=== PATIENT | male | born 1965 | race African-American/Black ===

== ENCOUNTER 2021-01-23 12:06 | Emergency (ER) | payer OTHER ==
[2021-01-23 12:13] VITALS: BP 129/83; PULSE 77; RESP 20; TEMP 98.1
[2021-01-23] MEDS ORDERED: IBUPROFEN 600 MG TAB PO STA (12:22)
--- NOTE | 2021-01-23 12:25 | ED ---
Lower Extremity Injury HPI - General Chief Complaint: Extremity Injury, Lower Stated Complaint: Knee Injury Time Seen by Provider: 01/23/21 12:14 Source: patient Mode of arrival: wheelchair Limitations: no limitations - History of Present Illness Initial Comments: 55-year-old male presents to the emergency department with a chief complaint of right knee pain. Patient reports incident occurred yesterday while he was playing basketball. He states he went for a layup and landed on his right leg causing it to twist. Patient reports night continues to have pain with knee flexion and weightbearing. Patient denies any numbness or tingling. Denies taking medication to alleviate the symptoms. Denies previous injuries to the region. - Related Data Home Medications Medication Instructions Recorded Confirmed Acetaminophen [Tylenol Arthritis] 650 mg PO Q4H PRN 01/23/21 01/23/21 Calc/Mag Supplement 1 tab PO DAILY 01/23/21 01/23/21 Chlorpheniramine Maleate 4 mg PO Q4H PRN 01/23/21 01/23/21 [Chlor-Trimeton] Ibuprofen [Motrin] 600 mg PO Q6HR PRN 01/23/21 01/23/21 Multivitamins, Thera [Multivitamin 1 tab PO DAILY 01/23/21 01/23/21 (formulary)] QUEtiapine FUMARATE [SEROquel] 300 mg PO HS 01/23/21 01/23/21 Sertraline [Zoloft] 75 mg PO DAILY@1130 01/23/21 01/23/21 Thiamine [Vitamin B-1] 100 mg PO DAILY 01/23/21 01/23/21 buPROPion HCL [Wellbutrin SR] 200 mg PO DAILY 01/23/21 01/23/21 Allergies Allergy/AdvReac Type Severity Reaction Status Date / Time No Known Allergies Allergy Verified 01/23/21 13:16 Review of Systems ROS Statement: Those systems with pertinent positive or pertinent negative responses have been documented in the HPI. ROS Other: All systems not noted in ROS Statement are negative. Past Medical History Past Medical History: No Reported History History of Any Multi-Drug Resistant Organisms: None Reported Past Surgical History: Orthopedic Surgery Additional Past Surgical History / Comment(s): lt thumb Past Psychological History: Anxiety, Depression, PTSD Smoking Status: Current every day smoker Past Alcohol Use History: Abuse, Daily, Heavy Past Drug Use History: Cocaine General Exam Limitations: no limitations General appearance: alert, in no apparent distress Head exam: Present: atraumatic, normocephalic, normal inspection Eye exam: Present: normal appearance, PERRL, EOMI Pupils: Present: normal accommodation ENT exam: Present: normal exam, normal oropharynx, mucous membranes moist, TM's normal bilaterally, normal external ear exam Neck exam: Present: normal inspection, full ROM. Absent: tenderness Respiratory exam: Present: normal lung sounds bilaterally. Absent: respiratory distress, wheezes, rales, rhonchi, stridor Cardiovascular Exam: Present: regular rate, normal rhythm, normal heart sounds Extremities exam: Present: tenderness (Lateral infrapatellar tenderness of the right knee.), normal capillary refill, other (Palpable DP and PT bilaterally.). Absent: normal inspection (Mild swelling noted at the right knee compared to the left. No signs of ecchymosis or erythema.), full ROM (Slight limited range of motion with knee flexion), pedal edema, joint swelling, calf tenderness Back exam: Present: normal inspection, full ROM. Absent: tenderness, CVA tenderness (R), CVA tenderness (L) Neurological exam: Present: alert, oriented X3 Psychiatric exam: Present: normal affect, normal mood Skin exam: Present: warm, dry, intact, normal color Course Vital Signs 01/23/21 12:08 Temperature 98.1 F Pulse Rate 77 Respiratory 20 Rate Blood Pressure 129/83 O2 Sat by Pulse 97 Oximetry Medical Decision Making - Medical Decision Making 65-year-old male presents to the emergency department with a chief complaint of right knee pain. On physical examination, patient is neurovascularly intact. This was a pivoting injury. Possible ligamentous injury. X-ray shows no acute findings but there is some joint effusion. I advised the patient to follow-up with nail specialist. Tylenol Motrin for the pain. Applied knee immobilizer. Return parameters were discussed with patient was understanding and agreeable. Case discussed with Dr. López. Disposition Clinical Impression: Right knee injury, Joint effusion of knee Disposition: HOME SELF-CARE Condition: Stable Instructions (If sedation given, give patient instructions): Swollen Knee Joint (ED) Additional Instructions: Follow-up with nail specialist. Alternate between Tylenol and Motrin for pain control. Keep the leg elevated. Return to emergency department if symptoms worsen. Is patient prescribed a controlled substance at d/c from ED?: No Referrals: None,Stated [Primary Care Provider] - 1-2 days Time of Disposition: 13:32
--- NOTE | 2021-01-23 13:12 | XR ---
Right knee HISTORY: Pain and swelling, trauma 3 views the right knee There is soft tissue swelling. Spurring is present at the patellofemoral joint. Bone mineralization, joint spaces and alignment are maintained. Some minimal marginal spurring in the medial compartment. IMPRESSION: Osteoarthritis. Joint effusion. No fracture or dislocation.
== END 2021-01-23 13:52 | disposition home or self-care (01) ==
LOC: EC 12:06
DX: S89.91XA Unspecified injury of right lower leg, initial encounter (principal); M25.461 Effusion, right knee; F41.9 Anxiety disorder, unspecified; F32.9 Major depressive disorder, single episode, unspecified; F17.200 Nicotine dependence, unspecified, uncomplicated; Z79.899 Other long term (current) drug therapy; W50.2XXA Accidental twist by another person, initial encounter; Y93.67 Activity, basketball
CPT/HCPCS: 99283

== ENCOUNTER 2021-02-28 17:52 | Inpatient (IN) | payer MEDICAID, OTHER ==
--- NOTE | 2021-02-28 18:31 | ED ---
Psych HPI - General Chief Complaint: Psychiatric Symptoms Stated Complaint: Mental Health Time Seen by Provider: 02/28/21 17:58 Source: patient Mode of arrival: ambulatory - History of Present Illness Initial Comments: 55-year-old male presents to emergency Department for psychiatric evaluation. Patient reports recently lost his mother and he is relapsed back to drug use. States he has been using cocaine and heroin. States last time he used was yesterday. Typically uses them at the same time. Reports he does not want to continue doing this but cannot stop at this point. Reports he was clean for about 6 months prior to restarting again. States there is nothing to look forward to living. Denies any homicidal thoughts. - Related Data Home Medications Medication Instructions Recorded Confirmed Acetaminophen [Tylenol Arthritis] 650 mg PO Q4H PRN 01/23/21 01/23/21 Calc/Mag Supplement 1 tab PO DAILY 01/23/21 01/23/21 Chlorpheniramine Maleate 4 mg PO Q4H PRN 01/23/21 01/23/21 [Chlor-Trimeton] Ibuprofen [Motrin] 600 mg PO Q6HR PRN 01/23/21 01/23/21 Multivitamins, Thera [Multivitamin 1 tab PO DAILY 01/23/21 01/23/21 (formulary)] QUEtiapine FUMARATE [SEROquel] 300 mg PO HS 01/23/21 01/23/21 Sertraline [Zoloft] 75 mg PO DAILY@1130 01/23/21 01/23/21 Thiamine [Vitamin B-1] 100 mg PO DAILY 01/23/21 01/23/21 buPROPion HCL [Wellbutrin SR] 200 mg PO DAILY 01/23/21 01/23/21 Allergies Allergy/AdvReac Type Severity Reaction Status Date / Time No Known Allergies Allergy Verified 01/23/21 13:16 Review of Systems ROS Statement: Those systems with pertinent positive or pertinent negative responses have been documented in the HPI. ROS Other: All systems not noted in ROS Statement are negative. Past Medical History Past Medical History: No Reported History History of Any Multi-Drug Resistant Organisms: None Reported Past Surgical History: Orthopedic Surgery Additional Past Surgical History / Comment(s): lt thumb Past Psychological History: Anxiety, Depression, PTSD Smoking Status: Current every day smoker Past Alcohol Use History: Abuse, Daily, Heavy Past Drug Use History: Cocaine General Exam Limitations: no limitations General appearance: alert, in no apparent distress Head exam: Present: atraumatic, normocephalic, normal inspection Eye exam: Present: normal appearance, PERRL, EOMI Pupils: Present: normal accommodation ENT exam: Present: normal exam, normal oropharynx, mucous membranes moist, TM's normal bilaterally, normal external ear exam Neck exam: Present: normal inspection, full ROM. Absent: tenderness Respiratory exam: Present: normal lung sounds bilaterally. Absent: respiratory distress Cardiovascular Exam: Present: regular rate, normal rhythm, normal heart sounds. Absent: systolic murmur Extremities exam: Present: normal inspection, full ROM, normal capillary refill. Absent: tenderness Back exam: Present: normal inspection, full ROM. Absent: tenderness Neurological exam: Present: alert, oriented X3 Psychiatric exam: Present: normal affect, normal mood Skin exam: Present: warm, dry, intact, normal color Course Vital Signs 02/28/21 17:53 Temperature 97.9 F Pulse Rate 77 Respiratory 18 Rate Blood Pressure 125/81 O2 Sat by Pulse 98 Oximetry Medical Decision Making - Medical Decision Making 55-year-old male presents to emergency department for psychiatric evaluation. Patient is very anxious on evaluation.urine drug screen is pending. EPS evaluation the patient and he will be admitted for further medical management. Case discussed with Dr. López. Disposition Clinical Impression: Acute anxiety Disposition: ADMITTED IP TO THIS [facility] Condition: Fair Is patient prescribed a controlled substance at d/c from ED?: No Referrals: None,Stated [Primary Care Provider] - 1-2 days Time of Disposition: 19:26
[2021-02-28] MEDS ORDERED: MAG HYDROX/AL HYDROX/SIMETH 30 ML CUP PO PRN (20:21)
[2021-02-28] MEDS ORDERED: MAGNESIUM HYDROXIDE 2,400 MG/10 ML CUP PO PRN (20:21)
[2021-02-28] MEDS ORDERED: ACETAMINOPHEN TAB 325 MG TAB PO PRN (20:21)
[2021-02-28] MEDS ORDERED: LORazepam 1 MG TAB PO PRN (20:21)
[2021-02-28] MEDS ORDERED: LORazepam 2 MG/ML INJ IM PRN (20:23)
[2021-02-28] MEDS ORDERED: HALOPERIDOL LACTATE 5 MG/ML 1 ML VIAL IM PRN (20:24)
[2021-03-01 08:12] LABS: Basophils % (A) 1 %; Eosinophils # (A) 0.1 k/uL (0-0.7); Eosinophils % (A) 3 %; HCT 43.8 % (39.0-53.0); HGB 14.2 gm/dL (13.0-17.5); Lymphocytes # (A) 1.8 k/uL (1.0-4.8); Lymphocytes % (A) 42 %; MCH 29.2 pg (25.0-35.0); MCHC 32.5 g/dL (31.0-37.0); MCV 89.9 fL (80.0-100.0); Mean Platelet Volume 7.4; Monocytes # (A) 0.4 k/uL (0-1.0); Monocytes % (A) 8 %; Neutrophils # (A) 1.8 k/uL (1.3-7.7); Neutrophils % (A) 43 %; Platelet Count 208 k/uL (150-450); RBC 4.87 m/uL (4.30-5.90); RDW 13.5 % (11.5-15.5); WBC 4.2 k/uL (3.8-10.6)
[2021-03-01 08:20] LABS: Albumin 3.5 g/dL (3.5-5.0); Calcium 8.7 mg/dL (8.4-10.2); Potassium 4.7 mmol/L (3.5-5.1); Total Bilirubin 0.4 mg/dL (0.2-1.3); Total Protein 6.5 g/dL (6.3-8.2)
[2021-03-01] MEDS: NICOTINE 14MG/24HR PATCH TRANSDERM SCH (09:22)
[2021-03-01 10:01] LABS: Amphetamine Screen,Urine Not Detected (NotDetected); Barbiturate Screen,Urine Not Detected (NotDetected); Benzodiazepines Screen,Urine Not Detected (NotDetected); Cocaine Screen,Urine Detected (NotDetected); Methadone Screen, Urine Not Detected (NotDetected); Opiate Screen,Urine Not Detected (NotDetected); Oxycodone Screen, Urine Not Detected (NotDetected); Phencyclidine Screen,Urine Not Detected (NotDetected); Tricyclic Antidepressant,Urine Not Detected (NotDetected); Urn Cannabinoid Scrn Detected (NotDetected)
[2021-03-01] MEDS ORDERED: hydrOXYzine pamoate 25 MG CAP PO PRN (10:28)
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
[2021-03-01] MEDS: SERTRALINE 50 MG TAB PO SCH (11:35)
[2021-03-01 12:11] LABS: Chol/HDL Ratio 4.29; LDL Cholesterol,Calculated 106.6 mg/dL (0.0-131.0); VLDL Calculation 18.4 mg/dL (5.00-40.00)
--- NOTE | 2021-03-01 15:05 | P.HPMEDMHU ---
History of Present Illness H&P Date: 03/01/21 Chief Complaint: Depression Patient is a 55-year-old male with past medical history of bipolar who presented with symptoms of depression. Patient states that he recently lost his mother and subsequently relapsed back on drugs using cocaine and heroin and marijuana. Patient currently denies any chest pain nausea vomiting fever chills. He has no acute complaints. Patient states that he has been compliant with his psych meds. Routine labs showed low TSH. Review of Systems 10 ROS reviewed and are negative except as noted in HPI Past Medical History Past Medical History: No Reported History History of Any Multi-Drug Resistant Organisms: None Reported Past Surgical History: Orthopedic Surgery Additional Past Surgical History / Comment(s): lt thumb Past Anesthesia/Blood Transfusion Reactions: No Reported Reaction Past Psychological History: Anxiety, Depression, PTSD Smoking Status: Current every day smoker Past Alcohol Use History: Abuse, Daily, Heavy Additional Past Alcohol Use History / Comment(s): pt states that he abused alcohol in the past, but that he has not had a problem with drinking since he got sober at [facility]. pt reports that he relapsed on cocaine when his mother from dementia and that he also started drinking again at that time. However, pt states that he drinks 1 or 2 (12 oz) cans of beer 2 - 3 times per week. Past Drug Use History: Cocaine, Heroin Additional Drug Use History / Comment(s): pt states that he relapsed on cocaine earlier this month after his mother . pt reports that he has been using cocaine daily. pt also states that he has used heroin in the past because he does not like to feel the stimulant effect of the cocaine, so he would use heroin to bring it down. Medications and Allergies Home Medications Medication Instructions Recorded Confirmed Type Acetaminophen [Tylenol Arthritis] 650 mg PO Q4H PRN 01/23/21 01/23/21 History Calc/Mag Supplement 1 tab PO DAILY 01/23/21 01/23/21 History Chlorpheniramine Maleate 4 mg PO Q4H PRN 01/23/21 01/23/21 History [Chlor-Trimeton] Ibuprofen [Motrin] 600 mg PO Q6HR PRN 01/23/21 01/23/21 History Multivitamins, Thera [Multivitamin 1 tab PO DAILY 01/23/21 01/23/21 History (formulary)] QUEtiapine FUMARATE [SEROquel] 300 mg PO HS 01/23/21 01/23/21 History Sertraline [Zoloft] 75 mg PO DAILY@1130 01/23/21 01/23/21 History Thiamine [Vitamin B-1] 100 mg PO DAILY 01/23/21 01/23/21 History buPROPion HCL [Wellbutrin SR] 200 mg PO DAILY 01/23/21 01/23/21 History Allergies Allergy/AdvReac Type Severity Reaction Status Date / Time No Known Allergies Allergy Verified 01/23/21 13:16 Physical Exam Osteopathic Statement: *. No significant issues noted on an osteopathic structural exam other than those noted in the History and Physical/Consult. Vitals: Vital Signs Temp Pulse Pulse Resp BP BP Pulse Ox 03/01/21 09:26 98.1 F 03/01/21 07:28 97.5 F L 92 18 152/90 02/28/21 21:51 98.1 F 85 18 138/85 02/28/21 17:53 97.9 F 77 18 125/81 98 Intake and Output 02/28/21 03/01/21 03/01/21 22:59 06:59 14:59 Other: Weight 77.111 kg 77.111 kg General: [Alert and oriented, well nourished, no acute distress]. Eye: [PERRL, EOMI, normal conjunctiva]. HENT: [Normocephalic, clear tympanic membranes, normal hearing, moist oral mucosa, no scleral icterus, no sinus tenderness]. Neck: [Supple, non-tender, no carotid bruits, no JVD, no lymphadenopathy]. Lungs: [Clear to auscultation and percussion, non-labored respiration]. Heart: [Normal rate, regular rhythm, no murmur, gallop or edema]. Abdomen: [Soft, non-tender, non-distended, normal bowel sounds, no masses]. Musculoskeletal: [Normal range of motion and strength, no tenderness or swelling]. Skin: [Skin is warm, dry and pink, no rashes or lesions]. Neurologic: [Awake, alert, and oriented X3, CN II-XII intact]. Psychiatric: [Cooperative, appropriate mood and affect]. Cranial Nerve Examination - Cranial Nerves Cranial Nerve II- Optic: Intact Cranial Nerve III- Oculomotor: Intact Cranial Nerve IV- Trochlear: Intact Cranial Nerve V- Trigeminal: Intact Cranial Nerve - Abducens: Intact Cranial Nerve VII- Facial: Intact Cranial Nerve VIII- Auditory: Intact Cranial Nerve IX- Glossopharyngeal: Intact Cranial Nerve X- Vagus: Intact Cranial Nerve XI- Accessory: Intact Cranial Nerve XII- Hypoglossal: Intact Results CBC & Chem 7: 03/01/21 06:37 03/01/21 06:37 Labs: Abnormal Lab Results - Last 24 Hours (Table) 03/01/21 03/01/21 Range/Units 06:37 09:34 HDL Cholesterol 38.0 L (40.0-60.0) mg/dL TSH 0.375 L (0.465-4.680) mIU/L Urine Cocaine Screen Detected H (NotDetected) U Marijuana (THC) Screen Detected H (NotDetected) Thrombosis Risk Factor Assmnt - Choose All That Apply Each Factor Represents 1 point: Age 41-60 years Other Risk Factors: No Other congenital or acquired thrombophilia - If yes, enter type in comment: No Thrombosis Risk Factor Assessment Total Risk Factor Score: 1 Thrombosis Risk Factor Assessment Level: Low Risk Assessment and Plan Assessment: Bipolar with depression -Your psychiatric management Low TSH likely due to subclinical hyperthyroidism -Check free T4 -Patient currently asymptomatic for hyperthyroidism CODE STATUS:full code DVT prophylaxis: mechanical Anticipated discharge place: home A total of 40 minutes was spent on the care of this complex patient more than 50% of the time was spent in counseling and care coordination.
[2021-03-01 17:57] LABS: Urine Alcohol Negative (Negative); Urine Barbiturate Negative (Negative); Urine Cocaine Positive (Negative); Urine Methadone Negative (Negative); Urine Opiates Negative (Negative); Urine Phencyclidine Negative (Negative)
[2021-03-01] MEDS: QUEtiapine 50 MG TAB PO SCH (21:35)
[2021-03-02 06:48] VITALS: BP 124/79; PULSE 76; RESP 17
[2021-03-02] MEDS: SERTRALINE 50 MG TAB PO SCH (08:32)
[2021-03-02] MEDS: NICOTINE 14MG/24HR PATCH TRANSDERM SCH (08:32)
[2021-03-02] MEDS: cloNIDine HCL 0.1 MG TAB PO PRN ×2 (08:54→16:16)
--- NOTE | 2021-03-02 11:00 | P.PN ---
Progress Note - Text Progress Note Date: 03/02/21 Interval History: Patient was seen sitting in his room this morning and was directable and agree able to speak with program writer in the office. Patient appears to have improvement in his hygiene and grooming today. He also has improvement in his affect today and appears to have a brighter affect. He states his mood and anxiety been gradually improving since being on the unit. He states that "I know what I have to do I need to get clean" referring to going to rehab. He states that he has been going to groups and trying to participate as best as he can. He spoke about the challenges of his substance abuse history and also his history of going to inpatient rehab in the past. He claims that he is able to see better last night and was not able to take his Seroquel as he was already asleep. He states that he is finding that Zoloft has been helping him and claims that Wellbutrin has not helped him in the past as much a Zoloft. He states that his appetite is still poor however gradually improving. At this time patient denies any suicidal or homical ideations, intent or plan. Patient denies any auditory, visual hallucinations and denies any paranoia or delusions. Patient denies any side effects from the medications and has been compliant with meds. Mental Status Exam: General Appearance: Patient appears to be tall, stated age is alert, directable, and attempts to cooperate. Patient appears to have improving hygiene and grooming. Behavior: Patient is seated without any agitated behavior. More cooperative today Speech: Patient's speech is fluent and nonpressured. Mood/Affect: Patient reports their mood is only mildly, affect is congruent Suicidality/Homicidality: Patient denies having any homicidal ideation intent or plan. Denies any suicidal ideations intent or plan Perceptions: Patient denies any visual hallucinations and denies any auditory hallucinations Though content/process: There is no evidence of any delusional thought content and thought process is linear and goal-directed. more future oriented today. Memory and concentration: AOX3, grossly intact for the purposes of this session. Can spell "WORLD" backwards Judgment and insight: fair Assessment bipolar disorder, currently depressed Cocaine abuse Plan: -Patient continues to meet criteria for inpatient psychiatric admission for symptom stabilization and safety. Patient has signed adult voluntary form and medication consent and was placed in patient's chart. -Medications: Seroquel 50 mg daily at bedtime for mood stabilization/insomnia. Zoloft 50 mg daily for mood/anxiety. clonidine prn for opioid w/d sx. -When necessary Ativan and Haldol for agitation/aggression. -NRT - nicotine patch -SW on board for discharge planning. Encouraged the patient to participate in milieu. patient claims that he currently has a intake appointment at [facility] on Monday, will confirm this with SW and team and prepare for electronic technologist d/c tomorrow.
[2021-03-02 17:04] VITALS: TEMP 97.4
[2021-03-02] MEDS: QUEtiapine 50 MG TAB PO SCH (20:44)
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
== END 2021-03-03 08:16 | DRG 885 ==
LOC: EC 17:52 → 3MHU 20:12
PROVIDERS: ADMIT Psychiatry & Neurology Psychiatry; ATTEND Psychiatry & Neurology Psychiatry
DX: F31.30 Bipolar disorder, current episode depressed, mild or moderate severity, unspecified (principal); F11.23 Opioid dependence with withdrawal; F12.10 Cannabis abuse, uncomplicated; F14.10 Cocaine abuse, uncomplicated; F17.210 Nicotine dependence, cigarettes, uncomplicated; F43.10 Post-traumatic stress disorder, unspecified; G47.00 Insomnia, unspecified; Z79.899 Other long term (current) drug therapy; Z81.8 Family history of other mental and behavioral disorders; Z91.5 Personal history of self-harm; Z20.822 Contact with and (suspected) exposure to COVID-19
CPT/HCPCS: 80053; 80061; 80306; 82075; 83036; 84439; 84443; 85025; 87635; 99285